=== PATIENT | female | born 1995 | race Hispanic/Latino ===

== ENCOUNTER 2024-02-02 04:53 | Inpatient (IN) | payer BC ==
[~2024-02-02] VITALS: Ht 160 cm; Wt 66.2 kg
[2024-02-02 05:36] LABS: APPEARANCE,URINE CLEAR (CLEAR); BILIRUBIN,URINE NEGATIVE (NEGATIVE); COLOR,URINE LIGHT-YELLOW (YELLOW); GLUCOSE, URINE (UA) NEGATIVE (NEGATIVE); KETONES,URINE NEGATIVE (NEGATIVE); LEUKOCYTE ESTERASE ,URINE 25 Leu/uL (NEGATIVE); NITRATE,URINE NEGATIVE (NEGATIVE); OCCULT BLOOD,URINE NEGATIVE (NEGATIVE); PH,URINE 6.5 (5.0-8.0); PROTEIN,URINE 20 mg/dL (NEGATIVE); UROBILINOGEN,URINE 0.2 mg/dL (0.2-1.0)
[2024-02-02 05:38] LABS: HCG,QUALITATIVE URINE NEGATIVE (NEGATIVE)
[2024-02-02] MEDS: PANTOPrazole 40 MG/VIAL IVP ONE (05:44)
[2024-02-02] MEDS: ondanSETRON 4MG INJ IVP ONE (05:44)
[2024-02-02] MEDS: LACTATED RINGERS 1000ML 1,000 ML IV ONE (05:45)
[2024-02-02 05:46] LABS: BASOPHILS # (AUTO) 0.04 K/uL (0.00-0.20); BASOPHILS % (AUTO) 0.2 % (0.0-5.0); EOSINOPHILS # (AUTO) 0.06 K/uL (0.00-0.70); EOSINOPHILS % (AUTO) 0.2 % (0.0-8.0); HEMATOCRIT 40.3 % (36-48); IMMATURE GRANULOCYTE ABSOLUTE 0.14 K/uL (0-1); LYMPHOCYTES # (AUTO) 1.8 K/uL (1.0-4.8); LYMPHOCYTES % (AUTO) 7.3 % (21.0-51.0); MEAN CORPUSCULAR HGB CONC 34.2 g/dL (32.0-36.0); MEAN CORPUSCULAR VOLUME 84.7 fL (79-99); MONOCYTES # (AUTO) 1.1 K/uL (0.1-1.0); MONOCYTES % (AUTO) 4.4 % (3.0-13.0); NEUTROPHILS # (AUTO) 21.8 K/uL (1.8-7.7); NEUTROPHILS % (AUTO) 87.3 % (40.0-77.0); PLATELET COUNT (AUTO) 301 K/uL (130-400); RED BLOOD CELL COUNT(AUTO) 4.76 MIL/uL (4.00-5.50); RED CELL DISTRIBUTION WIDTH 12.8 % (11.0-15.5)
[2024-02-02 06:12] LABS: ALBUMIN 3.7 g/dL (3.5-5.0); BILIRUBIN,TOTAL 0.2 mg/dL (0.2-1.0); CREATININE 0.7 mg/dL (0.5-1.0); POTASSIUM 3.9 mmol/L (3.5-5.1); TOTAL PROTEIN, SERUM 7.4 g/dL (6.0-8.3)
[2024-02-02 06:13] LABS: ADD UA MICROSCOPIC YES; BACTERIA,URINE RARE /HPF (None Seen); MUCUS,URINE RARE LPF (None Seen); RBC,URINE 0-1 /HPF (0-1); SQUAMOUS EPITHELIAL CELL,UR FEW /HPF (0-2); WBC,URINE 0-1 /HPF (0-1)
[2024-02-02] MEDS: 0.9%NACL 1000ML 2,040 ML IV ONE (06:56)
[2024-02-02] MEDS: cefTRIAXone 1G VIAL IVPB ONE (06:56)
[2024-02-02 07:23] VITALS: O2SAT 100
[2024-02-02] MEDS ORDERED: D-ME118S56 PO (08:08)
[2024-02-02] MEDS ORDERED: LEVO-70 PO (08:08)
[2024-02-02] MEDS ORDERED: CETI10TA57 PO (08:08)
[2024-02-02] MEDS ORDERED: ALBU90AE3 IH (08:08)
[2024-02-02] MEDS ORDERED: FLUT15.845 NS (08:08)
[2024-02-02 09:17] VITALS: BP 126/71; PULSE 95; RESP 19; TEMP 98.4
[2024-02-02] MEDS: ondanSETRON 4MG INJ IVP PRN (10:16)
[2024-02-02] MEDS: 0.9%NACL 1000ML 1,000 ML IV SCH (10:17)
[2024-02-02 11:41] VITALS: BP 107/54; PULSE 86; RESP 18; TEMP 98.1
[2024-02-02 16:00] VITALS: BP 112/59; PULSE 90; RESP 18; TEMP 97.9
[2024-02-02 19:00] VITALS: BP 129/71; PULSE 93; RESP 18; TEMP 99.1
[2024-02-02] MEDS: acetaMINOPHEN 325 MG TAB PO PRN (20:19)
[2024-02-03] VITALS (7 sets, daily range): BP systolic 105–123; BP diastolic 58–78; PULSE 65–89; RESP 16–18; TEMP 97.5–98.5
[2024-02-03 05:09] LABS: HEMATOCRIT 37.6 % (36-48); MEAN CORPUSCULAR HEMOGLOBIN 28.9 pg (27.0-33.0); MEAN CORPUSCULAR HGB CONC 33.2 g/dL (32.0-36.0); MEAN CORPUSCULAR VOLUME 86.8 fL (79-99); RED BLOOD CELL COUNT(AUTO) 4.33 MIL/uL (4.00-5.50); RED CELL DISTRIBUTION WIDTH 13.2 % (11.0-15.5); WHITE BLOOD COUNT (AUTO) 8.5 K/uL (4.8-10.8)
[2024-02-03 05:18] LABS: CREATININE 0.6 mg/dL (0.5-1.0); POTASSIUM 3.6 mmol/L (3.5-5.1)
[2024-02-03] MEDS: CEFTRIAXONE 2GM VIAL IVPB SCH (06:14)
[2024-02-04 04:05] VITALS: BP 110/53; PULSE 65; RESP 17; TEMP 98.3
[2024-02-04 04:33] LABS: HEMATOCRIT 36.4 % (36-48); MEAN CORPUSCULAR HEMOGLOBIN 28.6 pg (27.0-33.0); MEAN CORPUSCULAR VOLUME 86.7 fL (79-99); RED BLOOD CELL COUNT(AUTO) 4.2 MIL/uL (4.00-5.50); RED CELL DISTRIBUTION WIDTH 13.2 % (11.0-15.5); WHITE BLOOD COUNT (AUTO) 7.3 K/uL (4.8-10.8)
[2024-02-04 04:45] LABS: CREATININE 0.6 mg/dL (0.5-1.0); POTASSIUM 3.6 mmol/L (3.5-5.1)
[2024-02-04 08:00] VITALS: BP 114/70; PULSE 63; RESP 17; TEMP 97.7
[2024-02-04] MEDS: acetaMINOPHEN 325 MG TAB PO PRN (08:14)
[2024-02-04 12:00] VITALS: BP 115/60; PULSE 72; RESP 16; TEMP 97.7
[2024-02-04] MEDS ORDERED: CEPH500C2 PO (15:23)
== END 2024-02-04 15:58 | disposition home or self-care (01) | DRG 872 ==
LOC: EDH 04:53 → EDHIP 06:57 → 4AH 08:47
PROVIDERS: ADMIT Hospitalist; ATTEND Hospitalist
DX: A41.9 Sepsis, unspecified organism (principal); K52.9 Noninfective gastroenteritis and colitis, unspecified; N39.0 Urinary tract infection, site not specified; J20.9 Acute bronchitis, unspecified; Z79.899 Other long term (current) drug therapy
CPT/HCPCS: 36415; 71045; 80048; 80053; 81001; 81025; 83605; 83690; 84484; 85025; 85027; 87040; 87086; 93005; 96365; 96375; G0378; J0696; J2405; J2470; J7030; J7120; A4510; A4600

== ENCOUNTER 2024-02-18 05:31 | Emergency (ER) | payer BC ==
[~2024-02-18] VITALS: Ht 160 cm; Wt 65.3 kg
[~2024-02-18 05:31] MED LIST: ALBU90AE3 IH; CEPH500C2 PO; CETI10TA57 PO; D-ME118S56 PO; FLUT15.845 NS
[2024-02-18 05:59] VITALS: TEMP 98.8
[2024-02-18 06:04] LABS: BASOPHILS # (AUTO) 0.05 K/uL (0.00-0.20); BASOPHILS % (AUTO) 0.5 % (0.0-5.0); EOSINOPHILS # (AUTO) 0.13 K/uL (0.00-0.70); EOSINOPHILS % (AUTO) 1.2 % (0.0-8.0); HEMATOCRIT 39.5 % (36-48); IMMATURE GRANULOCYTE ABSOLUTE 0.02 K/uL (0-1); LYMPHOCYTES # (AUTO) 3.1 K/uL (1.0-4.8); LYMPHOCYTES % (AUTO) 28.8 % (21.0-51.0); MEAN CORPUSCULAR HEMOGLOBIN 29.2 pg (27.0-33.0); MEAN CORPUSCULAR HGB CONC 33.2 g/dL (32.0-36.0); MEAN CORPUSCULAR VOLUME 88.2 fL (79-99); MONOCYTES # (AUTO) 0.7 K/uL (0.1-1.0); MONOCYTES % (AUTO) 6.3 % (3.0-13.0); NEUTROPHILS # (AUTO) 6.8 K/uL (1.8-7.7); PLATELET COUNT (AUTO) 288 K/uL (130-400); RED BLOOD CELL COUNT(AUTO) 4.48 MIL/uL (4.00-5.50); WHITE BLOOD COUNT (AUTO) 10.8 K/uL (4.8-10.8)
[2024-02-18] MEDS: 0.9%NACL 1000ML 1,000 ML IV ONE (06:08)
[2024-02-18] MEDS: ondanSETRON 4MG INJ IVP ONE (06:08)
[2024-02-18] MEDS: FAMOTIDINE 20MG VIAL IV ONE (06:08)
[2024-02-18 06:09] LABS: APPEARANCE,URINE CLEAR (CLEAR); BILIRUBIN,URINE NEGATIVE (NEGATIVE); GLUCOSE, URINE (UA) NEGATIVE (NEGATIVE); KETONES,URINE NEGATIVE (NEGATIVE); LEUKOCYTE ESTERASE ,URINE NEGATIVE Leu/uL (NEGATIVE); NITRATE,URINE NEGATIVE (NEGATIVE); OCCULT BLOOD,URINE NEGATIVE (NEGATIVE); PH,URINE 6.5 (5.0-8.0); PROTEIN,URINE NEGATIVE (NEGATIVE); UROBILINOGEN,URINE 0.2 mg/dL (0.2-1.0)
[2024-02-18 06:10] LABS: ADD UA MICROSCOPIC NO; COLOR,URINE Light-Yellow (YELLOW)
[2024-02-18 06:52] LABS: CREATININE 0.6 mg/dL (0.5-1.0); POTASSIUM 3.7 mmol/L (3.5-5.1)
[2024-02-18] MEDS: MAG/ALUM/SIMETH 30 ML UDCUP PO ONE (07:57)
[2024-02-18] MEDS: LIDOCAINE HCL 2% VISCOUS 15 ML UDCUP PO ONE (07:57)
[2024-02-18 08:18] LABS: ALBUMIN 4.4 g/dL (3.5-5.0); BILIRUBIN,DIRECT 0.1 mg/dL (0.0-0.3); BILIRUBIN,TOTAL 0.6 mg/dL (0.2-1.0); TOTAL PROTEIN, SERUM 8.4 g/dL (6.0-8.3)
[2024-02-18] MEDS ORDERED: PANT40TA PO (08:44)
[2024-02-18 09:55] VITALS: BP 117/73; PULSE 74; RESP 17; O2SAT 100
== END 2024-02-18 09:57 | disposition home or self-care (01) ==
LOC: EDH 05:31
DX: K21.9 Gastro-esophageal reflux disease without esophagitis (principal); Z79.899 Other long term (current) drug therapy
CPT/HCPCS: 99284; 96374; 96361; 96375; 80076; 80048; 83690; 85025; 81003; 36415; J3490; J7030; J2405

== ENCOUNTER 2025-01-06 20:40 | Observation (INO) | payer BC ==
[~2025-01-06] VITALS: Ht 160 cm; Wt 64.1 kg
[~2025-01-06 20:40] MED LIST changes: +PANT40TA PO
--- NOTE | 2025-01-06 20:42 | NUR ---
COVID, FLU SWABS COLLECTED AND SENT FOR ANY FUTURE ORDERS
--- NOTE | 2025-01-06 20:43 | NUR ---
UA CUP PROVIDED
--- NOTE | 2025-01-06 21:03 | NUR ---
UA COLLECTED AND SENT
[2025-01-06 21:13] LABS: APPEARANCE,URINE CLOUDY (CLEAR); GLUCOSE, URINE (UA) NEGATIVE (NEGATIVE); LEUKOCYTE ESTERASE ,URINE 25 Leu/uL (NEGATIVE); NITRATE,URINE NEGATIVE (NEGATIVE); OCCULT BLOOD,URINE +- (TRACE) (NEGATIVE)
[2025-01-06 21:14] LABS: ADD UA MICROSCOPIC YES
[2025-01-06 21:18] LABS: INFLUENZA TYPE A Negative For Type A (NEGATIVE); INFLUENZA TYPE B Negative For Type B (NEGATIVE)
[2025-01-06 21:19] LABS: SQUAMOUS EPITHELIAL CELL,UR MOD /HPF (0-2)
[2025-01-06 21:19] LABS: COVID19 (SARS ANTIGEN RAPID) PRESUMPTIVE NEGATIVE (NEGATIVE)
[2025-01-06 21:31] LABS: IMMATURE GRANULOCYTE ABSOLUTE 0.10 K/uL (0-1); NUCLEATED RED BLOOD CELLS 0.0 % (0.0-0.19); PLATELET COUNT (AUTO) 302 K/uL (130-400); RED BLOOD CELL COUNT(AUTO) 4.64 MIL/uL (4.00-5.50); RED CELL DISTRIBUTION WIDTH 13.5 % (11.0-15.5); WHITE BLOOD COUNT (AUTO) 20.1 K/uL (4.8-10.8)
[2025-01-06 21:40] LABS: CREATININE 0.6 mg/dL (0.5-1.0); GLOMERULAR FILTR. RATE CALC 123.0 mL/min (>90); GLUCOSE,RANDOM 110.0 mg/dL (70-105); SODIUM SERUM 137.0 mmol/L (136-145); UREA NITROGEN, BLOOD 12.0 mg/dL (7-18)
[2025-01-06] MEDS: 0.9%NACL 1000ML 1,000 ML IV ONE (21:40)
[2025-01-06 21:49] LABS: ASPARTATE AMINOTRANSFERASE 16.0 U/L (10-37); TOTAL PROTEIN, SERUM 7.9 g/dL (6.0-8.3)
[2025-01-06] MEDS ORDERED: IOHEXOL-350 75 ML VIAL IV ONE (22:12)
[2025-01-06] MEDS: FAMOTIDINE 20MG VIAL IV ONE (23:24)
--- NOTE | 2025-01-07 00:01 | HMCIMG ---
EXAM: CT Abdomen and Pelvis with IV contrast. CLINICAL HISTORY: Diffuse abdominal pain. Leukocytosis. Nausea, vomiting, and diarrhea. TECHNIQUE: Thin collimated axial CT images of the abdomen and pelvis were obtained with sagittal and coronal reformatted images also submitted. CT scan is done according to ALARA (As Low As Reasonably Achievable). CONTRAST: Omnipaque 350. COMPARISON: None. FINDINGS: Unremarkable visualized lung parenchyma. No focal abnormality within the liver, gallbladder, pancreas, spleen, adrenals, or kidneys. Nondilated fluid-filled small and large bowel loops with mild diffuse mucosal thickening, concerning acute enterocolitis. Bowel loops are normal in caliber without evidence of obstruction or ileus. The appendix is normal. There is no abnormality within the urinary bladder. Unremarkable reproductive organs. Abdominal and pelvic vessels are patent. No lymphadenopathy. Trace free fluid in the cul-de-sac. There is no acute osseous abnormality. IMPRESSIONS: Acute enterocolitis. Trace free fluid in the cul-de-sac. /Shaye
[2025-01-07] MEDS ORDERED: METR-172 PO (00:20)
[2025-01-07] MEDS ORDERED: ONDA-243 PO (00:20)
--- NOTE | 2025-01-07 00:20 | ERN ---
General Chief Complaint: Abdominal Pain Stated Complaint: ABD PAIN, N/V/D Time Seen by MD: 20:42 Time Seen by Midlevel: 20:42 Source: patient History of Present Illness Initial Comments Patient is a 29-year-old female presenting to the emergency department for evaluation of nausea, vomiting, diarrhea that started earlier today. Mom is sick with similar symptoms and was diagnosed with a viral gastroenteritis several days ago. Allergies: Coded Allergies: No Known Allergies (Unverified Allergy, Unknown, 02/02/24) Home Meds Active Scripts Ondansetron (Ondansetron Odt) 4 Mg Tab.rapdis, 4 MG PO BID for 7 Days, #14 TAB Prov:LINDA GABRIEL 01/07/25 Metronidazole (Metronidazole) 500 Mg Tablet, 1 TAB PO BID for 5 Days, #10 TAB 0 Refills Prov:LINDA GABRIEL 01/07/25 Pantoprazole Sodium (Protonix) 40 Mg Tablet.dr, 40 MG PO BID for 30 Days, #60 TAB Prov:MORELIA MIRANDA MD 02/18/24 Cephalexin (Cephalexin) 500 Mg Capsule, 500 MG PO BID, #10 CAP Prov:STEPHAN PETERSON MD 02/04/24 Reported Medications D-Methorphan Hb/P-Epd HCl/Bpm (Yooxqctnji-Xsizooskmup-Yl Syr) 2 Mg-30 Mg-10 Mg/5 Ml Syrup, 10 ML PO Q6HPRN PRN for COUGH/COLD SYMPTOMS, ML 02/02/24 Cetirizine HCl (Cetirizine HCl) 10 Mg Tablet, 10 MG PO DAILY, TAB 02/02/24 Albuterol Sulfate (Proair Digihaler) 90 Mcg Aer.pw.bas, 90 MCG IH BIDRESP PRN for SHORTNESS OF BREATH/WHEEZING 02/02/24 Fluticasone Propionate (Fluticasone Propionate) 50 Mcg/Actuation Black.susp, 15.8 ML NS AD 02/02/24 Past Medical History Past Medical History: No Pertinent History Past Surgical History: None Family History Family History: Negative Female( History) LMP: Dec 24, 2024 ROS Dictation CONSTITUTIONAL: Negative except for HPI HEAD/FACE: Negative except for HPI EENT: Negative except for HPI RESPIRATORY: Negative except for HPI GASTROINTESTINAL/ABDOMINAL: Negative except for HPI GENITOURINARY: Negative except for HPI MUSCULOSKELETAL: Negative except for HPI INTEGUMENTARY: Negative except for HPI NEUROLOGICAL/PSYCH: Negative except for HPI HEMATOLOGIC/LYMPHATIC: Negative except for HPI All Systems Negative, Except as noted above. 13 point review of systems assessed and all negative except for above. Physical Exam Physical Exam Dictation Vital Signs reviewed General Appearance: Alert, oriented x 3, no acute distress, well developed, nourished. Head and Face: non-traumatic. Eyes: PERRL, pink conjunctivas, eyelid no trauma, anterior chamber with arcus senilis. Ears: Pinnas intact and no signs of trauma or erythema ear canals clear and no discharge TM no erythema Nose: No discharge, no bleeding. Oropharynx: Mouth normal, tongue pink, pharynx clear,no erythema, tonsils no exudates, no abscesses noted, mucous membrane moist Neck: Supple, non-tender, no thyromegaly, no masses, no JVD, no bruits Breast:Deferred Chest:No tenderness, no crepitus, no paradoxical movement, no retractions Lungs:Clear, well-ventilated, symmetric, no rales, no wheezing, no rhonchi, no stridor, good breath sounds bilaterally Heart: Regular rate, regular rhythm, no murmur, no gallops Vascular: no peripheral edema, Abdomen: Soft, positive bowel sounds, nondistended, no guarding, nontender, no rebound, no masses no hepatomegaly, no splenomegaly, no Rolle's sign, no hernias. Rectal: Deferred Genital: Deferred Neurological: Normal speech, motor function intact, sensory function intact Musculoskeletal: Neck nontender, full range of motion, back nontender, full ra nge of motion, Extremities: nontender, full range of motion Skin: Color pink, dry, no turgor, no rash, no lacerations, no abrasions, no contusions. Lymphatic: Deferred Results Laboratory and Microbiology Lab and Micro Result Laboratory Tests Test 01/06/25 20:43 01/06/25 21:02 01/06/25 21:21 Influenza Type A Antigen Negative For Type A Influenza Type B Antigen Negative For Type B SARS-CoV-2 Antigen (Rapid) PRESUMPTIVE NEGATIVE Urine Color YELLOW (YELLOW) Urine Appearance CLOUDY (CLEAR) H Urine pH 5.5 (5.0-8.0) Urine Specific [place] 1.029 (1.001-1.031) Urine Protein NEGATIVE mg/dL (NEGATIVE) Urine Glucose (UA) NEGATIVE mg/dL (NEGATIVE) Urine Ketones >=80 mg/dL (NEGATIVE) Urine Occult Blood +- (TRACE) (NEGATIVE) H Urine Nitrate NEGATIVE (NEGATIVE) Urine Bilirubin NEGATIVE mg/dL (NEGATIVE) Urine Urobilinogen 0.2 mg/dL (0.2-1.0) Urine Leukocyte Esterase 25 Nelda/uL (NEGATIVE) H Urine RBC 6-10 /HPF (0-1) H Urine WBC 0-1 /HPF (0-1) Urine Squamous Epithelial Cells MOD /HPF (0-2) Urine Bacteria RARE /HPF (None Seen) White Blood Count 20.1 K/uL (4.8-10.8) H Red Blood Count 4.64 MIL/uL (4.00-5.50) Hemoglobin 13.3 g/dL (12.0-16.0) Hematocrit 38.5 % (36-48) Mean Corpuscular Volume 83.0 fL (79-99) Mean Corpuscular Hemoglobin 28.7 pg (27.0-33.0) Mean Corpuscular Hemoglobin Concent 34.5 g/dL (32.0-36.0) Red Cell Distribution Width 13.5 % (11.0-15.5) Platelet Count 302 K/uL (130-400) Mean Platelet Volume 10.9 fL (7.5-10.5) H Immature Granulocyte % (Auto) 0.5 % (0-1) Neutrophils (%) (Auto) 88.7 % (40.0-77.0) H Lymphocytes (%) (Auto) 7.1 % (21.0-51.0) L Monocytes (%) (Auto) 3.4 % (3.0-13.0) Eosinophils (%) (Auto) 0.1 % (0.0-8.0) Basophils (%) (Auto) 0.2 % (0.0-5.0) Neutrophils # (Auto) 17.9 K/uL (1.8-7.7) H Lymphocytes # (Auto) 1.4 K/uL (1.0-4.8) Monocytes # (Auto) 0.7 K/uL (0.1-1.0) Eosinophils # (Auto) 0.02 K/uL (0.00-0.70) Basophils # (Auto) 0.05 K/uL (0.00-0.20) Absolute Immature Granulocyte (auto 0.10 K/uL (0-1) Nucleated Red Blood Cells 0.0 % (0.0-0.19) White Cell Morphology Comment See comments Sodium Level 137 mmol/L (136-145) Potassium Level 3.6 mmol/L (3.5-5.1) Chloride Level 102 mmol/L (101-111) Carbon Dioxide Level 25 mmol/L (21-32) Blood Urea Nitrogen 12 mg/dL (7-18) Creatinine 0.6 mg/dL (0.5-1.0) Glomerular Filtration Rate Calc 123 mL/min (>90) Random Glucose 110 mg/dL (70-105) H Total Calcium 9.2 mg/dL (8.5-10.1) Total Bilirubin 0.4 mg/dL (0.2-1.0) Aspartate Amino Transf (AST/SGOT) 16 U/L (10-37) Alanine Aminotransferase (ALT/SGPT) 23 U/L (12-78) Alkaline Phosphatase 85 U/L (50-136) Total Protein 7.9 g/dL (6.0-8.3) Albumin 4.2 g/dL (3.5-5.0) Lipase 21 U/L (16-77) Serum Test, Qualitative NEGATIVE (NEGATIVE) Labs Reviewed?: Yes MDM MDM: Differential diagnosis: Gastroenteritis, enterocolitis, dehydration There are no social concerns with this patient. Prescription drug management Prescriptions will include: Flagyl l Medical management and examination interpretation discussions were had by me with other qualified healthcare professionals as indicated for the patient's care. ED Course Orders Procedure Category Date Status Time Cbc With Differential LAB 01/06/25 Complete 20:42 Comprehensive LAB 01/06/25 Complete Metabolic Panel 20:42 Lipase LAB 01/06/25 Complete 20:42 Testing, LAB 01/06/25 Complete Serum Hcg 20:42 Urinalysis Profile LAB 01/06/25 Complete 20:42 Influenza Type A & B, LAB 01/06/25 Complete Rapid 20:44 Covid19 (Sars Antigen LAB 01/06/25 Complete Rapid) 20:43 0.9%Nacl 1000ml (Ns PHA 01/06/25 Complete 1000ml) 22:00 Ondansetron 4mg Inj PHA 01/06/25 Complete (Zofran 4mg Inj) 22:00 Famotidine 20mg Vial PHA 01/06/25 Complete (Pepcid 20mg Vial) 22:00 Ct Abdomen/Pelvis CT 01/06/25 Resulted W/Contrast 21:47 Iohexol (Omnipaque) PHA 01/06/25 Complete 22:12 Ceftriaxone 1g Vial PHA 01/07/25 Complete (Rocephine 1g Inj) 00:30 Ondansetron 4mg Inj PHA 01/07/25 Complete (Zofran 4mg Inj) 00:30 Morphine 2mg Syg PHA 01/07/25 Complete (Morphine 2mg Syg) 00:30 Metoclopramide 10 PHA 01/07/25 Complete Mg/2 Ml Vial (Reglan 1 01:30 Current Medications Medications (Trade) Dose Ordered Sig/Zaria Route PRN Reason Start Time Stop Time Status Last Admin Dose Admin Ceftriaxone Sodium (ROCEphine 1G INJ) 1 gm ONCE ONCE IVPB 01/07/25 00:30 01/07/25 00:31 DC 01/07/25 00:40 Famotidine (Pepcid 20mg Vial) 20 mg ONCE ONCE IV 01/06/25 22:00 01/06/25 22:01 DC 01/06/25 23:24 Iohexol (Omnipaque) 75 ml [facility] ONCE IV 01/06/25 22:12 01/06/25 22:12 DC Metoclopramide HCl (regLAN 10MG IV) 5 mg ONCE ONCE IVP 01/07/25 01:30 01/07/25 01:32 DC Morphine Sulfate (morPHINE 2MG SYG) 2 mg ONCE ONCE IVP 01/07/25 00:30 01/07/25 00:31 DC 01/07/25 00:41 Ondansetron HCl (zoFRAN 4MG INJ) 4 mg ONCE ONCE IVP 01/06/25 22:00 01/06/25 22:01 DC 01/06/25 23:24 Ondansetron HCl (zoFRAN 4MG INJ) 4 mg ONCE ONCE IVP 01/07/25 00:30 01/07/25 00:31 DC 01/07/25 00:40 Sodium Chloride 1,000 ml @ 0 mls/hr ONCE ONCE IV 01/06/25 22:00 01/06/25 22:01 DC 01/06/25 21:40 Vital Signs Date Time Temp Pulse Resp B/P (MAP) Pulse Ox O2 Delivery O2 Flow Rate FiO2 01/07/25 00:54 98.2 79 18 106/72 98 Room Air* 0 01/06/25 23:34 79 18 116/65 98 Room Air* 0 01/06/25 21:48 88 18 128/70 100 Room Air* 0 01/06/25 20:42 98.2 82 16 124/53 98 Room Air On repeat examination patient is not tolerating p.o. she reports diffuse abdominal cramping/pain. Patient was already given8 mg of Zofran. He refused Reglan. Given that patient is not p.o. tolerant we will admit further observation and management. DX & DISP Disposition: Inpatient Departure Impression: Primary Impression: Enterocolitis Additional Impression: Leukocytosis Condition: Stable Scripts Ondansetron (Ondansetron Odt) 4 Mg Tab.rapdis 4 MG PO BID for 7 Days, #14 TAB Prov: LINDA GABRIEL 01/07/25 Referrals: GEORGI GARCIA (PCP) Time of Disposition: 00:19 I have reviewed the case, and I agree with, Diagnosis and Plan I performed the substantive portion of the visit. I have reviewed and pe rsonally made and approve the management plan that is documented in the note by myself or the ARTUR. I acknowledge for responsibility for the patient's management plan. LINDA GABRIEL Jan 07, 2025 00:20
[2025-01-07] MEDS: cefTRIAXone 1G VIAL 1 GM ONE (00:39)
--- NOTE | 2025-01-07 01:32 | NUR ---
PATIENT TOLERATED PO FLUIDS AND ICE.
--- NOTE | 2025-01-07 02:30 | HP ---
[facility] HISTORY AND PHYSICAL Date of Service: Jan 07, 2025 Time of Service: 02:22 PCP: Ryne Major HISTORY OF PRESENT ILLNESS: This is a 29-year-old female with no pertinent medical and surgical history who presents to the ED for complaints of nausea, vomiting, diarrhea and abdominal discomfort which started around 5:00p.m. today. Patient reports she had chicken sandwich at work for lunch.3 hours after her lunch consumption she started having diarrhea, subsequently followed by nausea and vomiting.Patient states she had 5 episodes of non bloody vomiting and x1 episode of diarrhea.Patient reports she has not vomited since ER arrival but still continue to feel nauseated.Latest V/S temperature 98.2, heart rate 78, blood pressure 108/74 saturation 98% on room air. Labs: WBC 20 negative left shift of neutrophils 88, hemoglobin 13, hematocrit 38, platelet count 300. Chemistries unremarkable. Urinalysis consistent with urinary tract infection. Influenza type a and B negative SARs COVID negative. CT abdomen and pelvis with contrast result revealed acute enterocolitis. Trace free fluid in the cul-de-sac. While in the ER patient received1 L NS bolus, Zofran4 mg IV, famotidine 20 mg IV. Rocephin1 g IV morphine 2 mg IV and Reglan 5 mg IV We will admit patient for further medical management. REVIEW OF SYSTEMS CONSTITUTIONAL: Denies fevers, chills, or night sweats. No unintentional weight loss reported. NEUROLOGICAL: Denies headache, amaurosis fugax, motor weakness, sensory deficit, vertigo/spinning sensation, gait abnormalities, or tremors. ENT: No hearing loss, otalgia, otorrhea, rhinitis, rhinorrhea, hoarseness, or sore throat. CARDIOVASCULAR: Denies any exertional angina, dyspnea on exertion, orthopnea, paroxysmal nocturnal dyspnea, palpitations, life-threatening arrhythmias, claudication. PULMONARY: Denies any shortness of breath, cough, phlegm/sputum, hemoptysis, pleuritic chest pain. SLEEP: Denies morning headaches, daytime somnolence or napping. Denies difficulty falling asleep, staying asleep, waking from sleep. Denies knowledge of snoring. GASTROINTESTINAL: Complained of nausea vomiting diarrhea and abdominal discomfort Denies any type of dysphagia to either liquids or solids. Denies pyrosis, early satiety, , constipation, or changes in stool consistency or caliber. Denies coffee-ground emesis, hematemesis, hematochezia, or melanotic stools. GENITOURINARY: Denies frequency, urgency, nocturia, hematuria or incontinence (Storage/Irritative symptoms.) Low urinary stream, straining to void, urinary intermittency or hesitancy, splitting of the voiding stream, terminal dribbling. ENDOCRINOLOGIC: Denies polyuria, polydipsia, polyphagia or heat/cold intolerances. HEMATOLOGIC: Denies thrombophilia/previous clots, or coagulopathy/bleeding disorders. ONCOLOGIC: Denies personal history of malignancy. DERMATOLOGIC: Denies rashes or pruritus. PSYCHIATRIC: Denies any suicidal or homicidal ideation. Denies hallucinations. PAST MEDICAL HISTORY: [ Patient denies ] PAST SURGICAL HISTORY: [ Patient denies ] PAST SOCIAL HISTORY: [ Patient lives with mother. Patient denies alcohol tobacco and recreational drug use ] FAMILY HISTORY: [Noncontributory ] Coded Allergies: No Known Allergies (Unverified Allergy, Unknown, 02/02/24) PHYSICAL EXAM GENERAL APPEARANCE: The patient is awake, alert, and oriented, in no acute cardiopulmonary distress. NEUROLOGICAL: Cranial nerves II-XII grossly intact. Motor is 5/5 in bilateral upper and lower extremities proximal to distal. No sensory deficits. HEENT: Face is symmetric. Pupils are equal and reactive. Extraocular movements are intact. NECK: Supple. No JVD. No thyromegaly. No submental, submandibular, pre- /postauricular, occipital or supraclavicular lymphadenopathy. CHEST: Normal chest expansion. No Telemetry. LUNGS: Absence of any rales, rhonchi or any wheezing. CARDIOVASCULAR: Regular. S1 and S2 normal. No appreciable rubs, murmurs or gallops. ABDOMEN: Soft, nontender, and nondistended. There is no rebound, voluntary guarding, or rigidity. : Deferred. No Monson. EXTREMITIES: Non-edematous and not cyanotic. No clubbing. Good capillary refill. SKIN: No skin breakdown. Vital Sign (Last 24 Hours) 01/07/25 01/07/25 00:54 02:19 Temp 98.2 Pulse 78 Resp 18 B/P (MAP) 108/74 Pulse Ox 98 O2 Delivery Room Air* O2 Flow Rate 0 FiO2 21 LABS: Laboratory: Test 01/06/25 21:21 01/06/25 21:02 01/06/25 20:43 Range/Units White Blood Count 20.1 H 4.8-10.8 K/uL Red Blood Count 4.64 4.00-5.50 MIL/uL Hemoglobin 13.3 12.0-16.0 g/dL Hematocrit 38.5 36-48 % Mean Corpuscular Volume 83.0 79-99 fL Mean Corpuscular Hemoglobin 28.7 27.0-33.0 pg Mean Corpuscular Hemoglobin Concent 34.5 32.0-36.0 g/dL Red Cell Distribution Width 13.5 11.0-15.5 % Platelet Count 302 130-400 K/uL Mean Platelet Volume 10.9 H 7.5-10.5 fL Immature Granulocyte % (Auto) 0.5 0-1 % Neutrophils (%) (Auto) 88.7 H 40.0-77.0 % Lymphocytes (%) (Auto) 7.1 L 21.0-51.0 % Monocytes (%) (Auto) 3.4 3.0-13.0 % Eosinophils (%) (Auto) 0.1 0.0-8.0 % Basophils (%) (Auto) 0.2 0.0-5.0 % Neutrophils # (Auto) 17.9 H 1.8-7.7 K/uL Lymphocytes # (Auto) 1.4 1.0-4.8 K/uL Monocytes # (Auto) 0.7 0.1-1.0 K/uL Eosinophils # (Auto) 0.02 0.00-0.70 K/uL Basophils # (Auto) 0.05 0.00-0.20 K/uL Absolute Immature Granulocyte (auto 0.10 0-1 K/uL Nucleated Red Blood Cells 0.0 0.0-0.19 % White Cell Morphology Comment See comments Sodium Level 137 136-145 mmol/L Potassium Level 3.6 3.5-5.1 mmol/L Chloride Level 102 101-111 mmol/L Carbon Dioxide Level 25 21-32 mmol/L Blood Urea Nitrogen 12 7-18 mg/dL Creatinine 0.6 0.5-1.0 mg/dL Glomerular Filtration Rate Calc 123 >90 mL/min Random Glucose 110 H 70-105 mg/dL Total Calcium 9.2 8.5-10.1 mg/dL Total Bilirubin 0.4 0.2-1.0 mg/dL Aspartate Amino Transf (AST/SGOT) 16 10-37 U/L Alanine Aminotransferase (ALT/SGPT) 23 12-78 U/L Alkaline Phosphatase 85 50-136 U/L Total Protein 7.9 6.0-8.3 g/dL Albumin 4.2 3.5-5.0 g/dL Lipase 21 16-77 U/L Serum Test, Qualitative NEGATIVE NEGATIVE Urine Color YELLOW YELLOW Urine Appearance CLOUDY H CLEAR Urine pH 5.5 5.0-8.0 Urine Specific [place] 1.029 1.001-1.031 Urine Protein NEGATIVE NEGATIVE mg/dL Urine Glucose (UA) NEGATIVE NEGATIVE mg/dL Urine Ketones >=80 NEGATIVE mg/dL Urine Occult Blood +- (TRACE) H NEGATIVE Urine Nitrate NEGATIVE NEGATIVE Urine Bilirubin NEGATIVE NEGATIVE mg/dL Urine Urobilinogen 0.2 0.2-1.0 mg/dL Urine Leukocyte Esterase 25 H NEGATIVE Nelda/uL Urine RBC 6-10 H 0-1 /HPF Urine WBC 0-1 0-1 /HPF Urine Squamous Epithelial Cells MOD 0-2 /HPF Urine Bacteria RARE None Seen /HPF Influenza Type A Antigen Negative For Type A NEGATIVE Influenza Type B Antigen Negative For Type B NEGATIVE SARS-CoV-2 Antigen (Rapid) PRESUMPTIVE NEGATIVE NEGATIVE DIAGNOSTICS / RADIOLOGY: [ ] ASSESSMENT: Acute enterocolitis POA Acute leukocytosis POA Acute urinary tract infection POA PLAN: We will admit patient in medical surgical We will keep patient nothing by mouth Start on Rocephin1 g IV daily for empiric coverage We will start NS @ 100 ml / hr x2 bags and re evaluate We will start on famotidine 20 mg IV b.i.d. for GI prophylaxis We will replace electrolytes as needed per protocol We will add prn medication for fever,pain,cough , nausea and vomiting As per GI stool panel We will request labs in am Further orders to follow depending on above results Case discussed with attending physician and came up with above treatment and plan of care. ADVANCED CARE PLANNING 1. Which of the following were discussed? Hospice Care - No Therapeutic options - Yes Advance Directives - No Other discussions - 2. Discussed with who? Patient 3. Voluntary nature of this service was explained to the patient? Yes 4. Amount of time spent - _20 min 5. Reviewed by Physician? (if this service was performed by NPP) Yes Patient seen and examined by me. Agree with note by TICKET COLLECTOR SEE ADDITIONAL ORDERS PER CHART DISCUSSED WITH NURSING STAFF IVANIA PATRICIO COLLAR SETTER Jan 07, 2025 02:29
[2025-01-07] MEDS: 0.9%NACL 1000ML 1,000 ML IV ONE (03:22)
[2025-01-07] MEDS: 0.9%NACL 1000ML 1,000 ML IV SCH (03:22)
[2025-01-07 07:02] LABS: ASPARTATE AMINOTRANSFERASE 32.0 U/L (10-37); CREATININE 0.5 mg/dL (0.5-1.0); GLOMERULAR FILTR. RATE CALC 129.0 mL/min (>90); GLUCOSE,RANDOM 89.0 mg/dL (70-105); SODIUM SERUM 134.0 mmol/L (136-145); TOTAL PROTEIN, SERUM 6.8 g/dL (6.0-8.3); UREA NITROGEN, BLOOD 8.0 mg/dL (7-18)
[2025-01-07 07:06] LABS: IMMATURE GRANULOCYTE ABSOLUTE 0.04 K/uL (0-1); NUCLEATED RED BLOOD CELLS 0.0 % (0.0-0.19); PLATELET COUNT (AUTO) 259 K/uL (130-400); RED BLOOD CELL COUNT(AUTO) 4.32 MIL/uL (4.00-5.50); RED CELL DISTRIBUTION WIDTH 13.7 % (11.0-15.5); WHITE BLOOD COUNT (AUTO) 13.4 K/uL (4.8-10.8)
[2025-01-07] MEDS: FAMOTIDINE 20MG VIAL IV SCH (09:00)
--- NOTE | 2025-01-07 09:22 | NUR ---
DCP: HOME Pt lives with her mother Chne Burden [phone] in mobile home with ramp. No govt assist. Pt works at [employer] in [place], [employer] she drives, is independent of all her ADLS, assists with home management. Pt uses no DME or in home care services. PCP is Frankie Major and uses [facility] in [place] for her rx needs. Addendum: 01/07/25 at 0923 by FRANCOIS MITCHELL SS Amended: Links added.
[2025-01-07] MEDS ORDERED: PoTASSium chl 10% ELIXIR 20MEQ 20 MEQ/15 ML UDCUP PO PRN (10:00)
[2025-01-07] MEDS ORDERED: MAGNESIUM 2GM PREMIX 50ML 50 ML IV PRN (10:00)
[2025-01-07] MEDS ORDERED: PoTASSium chloRIDE 20MEQ ER 20 MEQ ERTAB PO PRN (10:00)
[2025-01-07] MEDS: FAMOTIDINE 20MG VIAL IV ONE (10:30)
[2025-01-07 19:21] VITALS: BP 115/60; PULSE 76; RESP 14; TEMP 99.1
[2025-01-07 23:28] VITALS: BP 106/57; PULSE 62; RESP 14; TEMP 98.6
[2025-01-07 23:35] VITALS: BP 104/66; PULSE 70; RESP 18; TEMP 98.3
--- NOTE | 2025-01-07 23:40 | NUR ---
REPORT GIVEN TO DOC FOR ROOM 314, PT STABLE AND VITAL SIGNS WITHIN NORMAL LIMITS
[2025-01-08 00:19] VITALS: O2SAT 97
[2025-01-08 04:30] VITALS: BP 100/56; PULSE 66; RESP 18; TEMP 98.8
[2025-01-08 05:45] LABS: IMMATURE GRANULOCYTE ABSOLUTE 0.01 K/uL (0-1); NUCLEATED RED BLOOD CELLS 0.0 % (0.0-0.19); PLATELET COUNT (AUTO) 239 K/uL (130-400); RED BLOOD CELL COUNT(AUTO) 3.96 MIL/uL (4.00-5.50); RED CELL DISTRIBUTION WIDTH 13.8 % (11.0-15.5); WHITE BLOOD COUNT (AUTO) 6.2 K/uL (4.8-10.8)
[2025-01-08 06:10] LABS: ASPARTATE AMINOTRANSFERASE 16.0 U/L (10-37); CREATININE 0.5 mg/dL (0.5-1.0); GLOMERULAR FILTR. RATE CALC 129.0 mL/min (>90); GLUCOSE,RANDOM 74.0 mg/dL (70-105); SODIUM SERUM 135.0 mmol/L (136-145); TOTAL PROTEIN, SERUM 6.0 g/dL (6.0-8.3); UREA NITROGEN, BLOOD 5.0 mg/dL (7-18)
[2025-01-08 08:06] VITALS: BP 110/66; PULSE 70; RESP 16; TEMP 98.3
[2025-01-08 08:29] VITALS: O2SAT 99
[2025-01-08 11:39] VITALS: BP 124/66; PULSE 59; RESP 16; TEMP 98.3
[2025-01-08] MEDS ORDERED: AMOX1TAB16 PO (13:43)
[2025-01-08] MEDS ORDERED: ONDA-243 PO (13:43)
--- NOTE | 2025-01-08 14:39 | DS ---
Discharge Summary Hospital Course Summary: This is a 29-year-old female with no pertinent medical and surgical history who presents to the ED for complaints of nausea, vomiting, diarrhea and abdominal discomfort which started around 5:00p.m. today. Patient reports she had chicken sandwich at work for lunch.3 hours after her lunch consumption she started having diarrhea, subsequently followed by nausea and vomiting.Patient states she had 5 episodes of non bloody vomiting and x1 episode of diarrhea.Patient reports she has not vomited since ER arrival but still continue to feel nauseated.Latest V/S temperature 98.2, heart rate 78, blood pressure 108/74 saturation 98% on room air. Labs: WBC 20 negative left shift of neutrophils 88, hemoglobin 13, hematocrit 38, platelet count 300. Chemistries unremarkable. Urinalysis consistent with urinary tract infection. Influenza type a and B negative SARs COVID negative. CT abdomen and pelvis with contrast result revealed acute enter ocolitis. Trace free fluid in the cul-de-sac. While in the ER patient received 1 L NS bolus, Zofran 4 mg IV, famotidine 20 mg IV. Rocephin1 g IV morphine 2 mg IV and Reglan 5 mg IV we admitted patient for further medical management. During the course of hospitalization patient started to improve rapidly and her white cell count has dropped to normal limits within a day. Patient's nausea, vomiting, diarrhea and abdominal discomfort have improved significantly. Patient was able to tolerate clear liquid diet initially which was advanced to solid diet this afternoon. Due to rapid improvement in her symptoms patient was discharged home in stable condition. Patient was sent home with a prescription of amoxicillin clavulanic acid for 5 days treating her UTI. Patient was advised to maintain adequate hydration, maintain proper hand hygiene, avoid drinking contaminated water. Patient was advised to monitor for red flag symptoms like in increasing abdominal pain, nausea, vomiting, diarrhea and return to ED as needed. 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 CLINICAL HISTORY: Diffuse abdominal pain. Leukocytosis. Nausea, vomiting, and diarrhea. TECHNIQUE: Thin collimated axial CT images of the abdomen and pelvis were obtained with sagittal and coronal reformatted images also submitted. CT scan is done according to ALARA (As Low As Reasonably Achievable). CONTRAST: Omnipaque 350. COMPARISON: None. FINDINGS: Unremarkable visualized lung parenchyma. No focal abnormality within the liver, gallbladder, pancreas, spleen, adrenals, or kidneys. Nondilated fluid-filled small and large bowel loops with mild diffuse mucosal thickening, concerning acute enterocolitis. Bowel loops are normal in caliber without evidence of obstruction or ileus. The appendix is normal. There is no abnormality within the urinary bladder. Unremarkable reproductive organs. Abdominal and pelvic vessels are patent. No lymphadenopathy. Trace free fluid in the cul-de-sac. There is no acute osseous abnormality. IMPRESSIONS: Acute enterocolitis. Trace free fluid in the cul-de-sac. 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 APPOINTMENT(S) : f/u with PCP in one 2-3 days PROCEDURES: None IMAGING (S) : report attached to summary MICROBIOLOGY : report attached to summary ACTIVITY : ad radha HOME MEDICATIONS : Continued Home Medications: Active Scripts Ondansetron (Ondansetron Odt) 4 Mg Tab.rapdis, 1 TAB PO Q6HPRN PRN for nausea/vomiting, #10 TAB 0 Refills Prov:OTONIEL COURTNEY MD 01/08/25 Amoxicillin/Potassium Clav (Amox Tr-K Clv 875-125 mg Tab) 875 Mg-125 Mg Tablet, 1 TAB PO BID for 5 Days, #10 TAB 0 Refills Prov:OTONIEL COURTNEY MD 01/08/25 Pantoprazole Sodium (Protonix) 40 Mg Tablet.dr, 40 MG PO BID for 30 Days, #60 TAB Prov:MORELIA MIRANDA MD 02/18/24 Reported Medications Albuterol Sulfate (Proair Digihaler) 90 Mcg Aer.pw.bas, 90 MCG IH BIDRESP PRN for SHORTNESS OF BREATH/WHEEZING 02/02/24 Fluticasone Propionate (Fluticasone Propionate) 50 Mcg/Actuation Garner.susp, 15.8 ML NS AD 02/02/24 Discontinued Reported Medications D-Methorphan Hb/P-Epd HCl/Bpm (Ctlsdltucz-Slrkvoihhff-Hx Syr) 2 Mg-30 Mg-10 Mg/5 Ml Syrup, 10 ML PO Q6HPRN PRN for COUGH/COLD SYMPTOMS, ML 02/02/24 Cetirizine HCl (Cetirizine HCl) 10 Mg Tablet, 10 MG PO DAILY, TAB 02/02/24 Discontinued Scripts Ondansetron (Ondansetron Odt) 4 Mg Tab.rapdis, 4 MG PO BID for 7 Days, #14 TAB Prov:LINDA GABRIEL 01/07/25 Cephalexin (Cephalexin) 500 Mg Capsule, 500 MG PO BID, #10 CAP Prov:STEPHAN PETERSON MD 02/04/24 New Medications: Amoxicillin/Potassium Clav (Amox Tr-K Clv 875-125 mg Tab) 875 Mg-125 Mg Tablet 1 TAB PO BID for 5 Days, #10 TAB 0 Refills Ondansetron (Ondansetron Odt) 4 Mg Tab.rapdis 1 TAB PO Q6HPRN PRN for nausea/vomiting, #10 TAB 0 Refills Continued Medications: Albuterol Sulfate (Proair Digihaler) 90 Mcg Aer.pw.bas 90 MCG IH BIDRESP PRN for SHORTNESS OF BREATH/WHEEZING Fluticasone Propionate (Fluticasone Propionate) 50 Mcg/Actuation Garner.susp 15.8 ML NS AD Pantoprazole Sodium (Protonix) 40 Mg Tablet.dr 40 MG PO BID for 30 Days, #60 TAB Discontinued Medications: Cephalexin (Cephalexin) 500 Mg Capsule 500 MG PO BID, #10 CAP Cetirizine HCl (Cetirizine HCl) 10 Mg Tablet 10 MG PO DAILY, TAB D-Methorphan Hb/P-Epd HCl/Bpm (Bejgsnjtxv-Mktjgujrhux-Ns Syr) 2 Mg-30 Mg-10 Mg/5 Ml Syrup 10 ML PO Q6HPRN PRN for COUGH/COLD SYMPTOMS, ML Ondansetron (Ondansetron Odt) 4 Mg Tab.rapdis 4 MG PO BID for 7 Days, #14 TAB Time spent arranging discharge: 1-30 minutes ATTESTATION BY PHYSICIAN I have seen and examined the patient. I reviewed the documentation, medical decision making, and treatment plan as noted by the resident provider above. I agree with the findings and plan of care. Renato Marinelli MD, HARSHAVARDHA MD Jan 08, 2025 14:39
[2025-01-08 15:14] VITALS: BP 133/77; PULSE 77; RESP 16; TEMP 98
--- NOTE | 2025-01-08 15:35 | NUR ---
DISCHARGE DC'D IV. NO COMPLICATIONS. AWARE TO FOLLOW UP WITH PCP WITHIN 2-3 DAYS. AWARE OF PRESCRIPTIONS SENT TO PHARMACY. ANSWERED ALL QUESTIONS. PT DENIES PAIN, NAUSEA AND VOMITING AT THIS TIME.
== END 2025-01-08 16:15 | disposition home or self-care (01) ==
LOC: EDH 20:40 → INTOOBSV 01-07 02:25 → EDHIP 01-07 02:25 → 3CH 01-07 23:47
PROVIDERS: ADMIT Internal Medicine; ATTEND Internal Medicine
DX: K52.9 Noninfective gastroenteritis and colitis, unspecified (principal); N39.0 Urinary tract infection, site not specified; D72.829 Elevated white blood cell count, unspecified; R11.2 Nausea with vomiting, unspecified; Z20.822 Contact with and (suspected) exposure to COVID-19; Z79.899 Other long term (current) drug therapy; Z98.890 Other specified postprocedural states
CPT/HCPCS: 99284; 74177; 96375 ×3; 87426; 80053 ×3; 84703; 83690; 85025 ×3; 87804 ×2; 81001; 36415 ×3; 96361 ×4; 96376 ×2; 83735 ×2; 87880; 81025; 96365; 87507; J3490 ×4; J7030 ×2; J2405 ×3; Q9967; J2270; J0696 ×2; G0378; 96374; 99285